=== PATIENT | male | born 2000 | race Caucasian/White ===

== ENCOUNTER 2020-05-04 07:51 | Emergency (ER) | payer OTHER, SELFPAY ==
--- NOTE | ~2020-05-04 | XR_ITS ---
EXAMINATION: XR CHEST CLINICAL INFORMATION: Cough. COMPARISON: None TECHNIQUE: Frontal view of the chest was obtained. FINDINGS: The lungs are clear. The heart and mediastinal structures are unremarkable. Mild thoracic dextro scoliosis is noted. XR/XR chest 1V IMPRESSION: No acute cardiopulmonary process.
[2020-05-04 09:15] VITALS: BP 132/84; PULSE 83; RESP 16; TEMP 36.6; O2SAT 98; BMI 22.8
--- NOTE | 2020-05-04 09:29 | ED_ITS ---
HPI - General Adult General Chief complaint: General Medical Stated complaint: COVID SYMPTONS Time Seen by Provider: 05/04/20 09:27 Source: patient Mode of arrival: ambulatory Limitations: no limitations History of Present Illness HPI narrative: cough with pain when he coughs, headache, runny nose body aches complaint: URI Onset (ago): day(s) (4) Location: head and chest Radiation: non-radiation Severity: mild Quality: aching Pain Consistency: constant Relieving factors: none Exacerbating factors: other (chest pain when he coughs) Associated symptoms: cough, fever/chills, headaches and malaise Treatments prior to arrival: none Related Data Previous Rx's Medication Instructions Recorded prednisone 40 mg PO DAILY 5 Days #10 tab 05/04/20 Allergies Allergy/AdvReac Type Severity Reaction Status Date / Time No Known Allergies Allergy Unverified 12/13/19 18:56 Review of Systems Review of Systems: Constitutional : no Fever, positive Chills, positive fati bradley, positive Malaise ENT/Mouth : positive sore throat, positive runny nose Eyes: No Discharge Cardiovascular : No Chest Pain, No SOB Respiratory : pos Cough, No Sputum Gastrointestinal : No Nausea, No Vomiting, No Diarrhea Genitourinary : No Dysuria, No Urinary Frequency Musculoskeletal : positive Myalgia Skin : No rash Neuro : pos Headache PMFSH Past Medical History Attestation statement: The following information was validated with the patient. Medical History Asthma Social History Social History (Updated 05/04/20 @ 09:34 by Sumaya Reeves DO) Smoking Status: Never smoker Use of substances other than those prescribed or required for medical reasons: No Advance Directives: No Advance Directives Information Provided: No Physical Exam Vital Signs: Vital Signs: Last Vital Signs Temp 97.8 F 05/04/20 09:15 Pulse 83 05/04/20 09:15 Resp 16 05/04/20 09:15 BP 132/84 05/04/20 09:15 Pulse Ox 98 05/04/20 09:15 Body Mass Index 22.8 Appearance: Alert. Oriented X3. No acute distress. Eyes: Pupils equal, round and reactive to light. ENT: Pharynx normal. Neck: Normal inspection. Neck supple. CVS: Normal heart rate and rhythm. Pulses normal. Respiratory: No respiratory distress. Breath sounds normal. Abdomen: Soft and nontender. Skin: Skin warm and dry. Normal skin color. Normal skin turgor. Extremities: No lower extremity edema. No calf ttp Neuro: Oriented X 3. No motor deficit. No sensory deficit. Course Course Course Narrative: patient has no hypoxia, clear lungs, CXR negative COVID negative Medical Decision Making MDM Narrative Medical decision making narrative: 19 yo male with asthma clear lungs but reports viral like illness with body aches and chest pain only with cough doubt PE no hypoxia - will need CXR and COVID swab dispo per results and findings. Lab Data Labs: Lab Results 05/04/20 Range/Units 10:04 Coronavirus (PCR) NEGATIVE (Negative) Influenza Type A (PCR) NEGATIVE (Negative) Influenza Type B (PCR) NEGATIVE (Negative) RSV RNA Qual (PCR) NEGATIVE (Negative) Discharge Plan Discharge Clinical Impression: Acute viral syndrome Patient Disposition: Home, Self-Care Instructions: Viral Syndrome (ED) Additional Instructions: return to ED for any worsening symptoms or concerns YOUR CHEST XRAY AND COVID SWAB WERE NEGATIVE if no improvement in 2 days please have recheck Prescriptions: New prednisone 20 mg tablet 40 mg PO DAILY 5 Days Qty: 10 RF: 0
[2020-05-04 10:56] LABS: Influenza A PCR NEGATIVE (Negative); Influenza B PCR NEGATIVE (Negative); Resp Syncy Virus RNA Qual PCR NEGATIVE (Negative); SARS COV2 PCR INHOUSE NEGATIVE (Negative)
== END 2020-05-04 12:24 | disposition home or self-care (01) ==
PROVIDERS: Emergency Provider Emergency Medicine; PCP Pediatrics
DX: B34.9 Viral infection, unspecified (principal); Z20.822 Contact with and (suspected) exposure to COVID-19; J45.909 Unspecified asthma, uncomplicated
CPT/HCPCS: 0241U; 36415; 71045; 99283

== ENCOUNTER 2021-11-23 11:58 | Emergency (ER) | payer OTHER, SELFPAY ==
[2021-11-23 12:09] VITALS: BP 105/72; PULSE 82; RESP 18; TEMP 37; O2SAT 97; BMI 20.7
[2021-11-23 12:27] LABS: Strep A Nucleic Acid Positive (Negative)
[2021-11-23 12:32] LABS: COVID-19 Test Negative (Negative); IDNOW Serial# 9DB6401D
--- NOTE | 2021-11-23 14:18 | ED_ITS ---
HPI - General Adult General Chief complaint: Upper Respiratory Symptoms Stated complaint: Sore throat Time Seen by Provider: 11/23/21 14:18 Source: patient Mode of arrival: ambulatory Limitations: no limitations History of Present Illness HPI narrative: Patient is a 21 year old male presenting to the emergency department today with a sore throat. Patient states that over the last 3 days he has had worsening sore throat. Patient denies any dizziness, lightheadedness, abdominal pain, nausea, vomiting, fever, chills, blurry vision, double vision, loss of vision, chest pain, difficulty breathing, shortness of breath, back pain, night sweats, pain with urination, increased urinary frequency, increased urinary urgency, blood in his urine or stool, syncope or a near syncopal episode, recent trauma or falls, bowel incontinence, bladder incontinence, bowel retention, bladder retention, or any other complaints at this time. Onset (ago): day(s) (3) Radiation: non-radiation Severity: mild Severity scale (1-10): 2 Quality: aching and dull Pain Consistency: constant Relieving factors: none Exacerbating factors: none Associated symptoms: denies other symptoms Treatments prior to arrival: none Related Data Previous Rx's Medication Instructions Recorded prednisone 20 mg tablet 40 mg PO DAILY 5 days #10 tabs 05/04/20 penicillin V potassium 500 mg 500 mg PO BID 10 days #20 tabs 11/23/21 tablet Allergies Allergy/AdvReac Type Severity Reaction Status Date / Time No Known Allergies Allergy Unverified 12/13/19 18:56 Review of Systems Constitutional: Constitutional: Reports no additional constitutional complaints, Denies chills, Denies fever(s) and Denies night sweats Eyes: Eyes: Reports no additional eye complaints, Denies blurry vision, Denies change in vision, Denies diplopia, Denies eye discharge, Denies loss of vision and Denies eye pain ENT: Denies dizziness and Reports sore throat Cardiovascular: Cardiovascular: Reports no additional cardiovascular complaints, Denies chest pain, Denies lightheadedness, Denies Loss of Consciousness and Denies dyspnea Respiratory: Respiratory: Reports no additional respiratory complaints and Denies dyspnea Gastrointestinal: Gastrointestinal: Reports no additional gastrointestinal complaints, Denies abdominal pain, Denies melena, Denies hematochezia, Denies change in bowel habits and Denies change in stool character Genitourinary: Genitourinary: Reports no additional male genitourinary complaints, Denies hematuria, Denies oliguria, Denies difficulty urinating, Denies dysuria, Denies urinary frequency, Denies urinary hesitancy, Denies urinary incontinence and Denies urinary urgency Musculoskeletal: Musculoskeletal: Reports no additional musculoskeletal complaints, Denies numbness and Denies tingling Neurologic: Denies dizziness, Denies loss of vision, Denies numbness and Denies tingling Psychiatric: Psychiatric: Reports no additional psychiatric complaints Endocrine: Endocrine: Reports no additional endocrine complaints Hematologic/Lymphatic: Hematologic/Lymphatic: Reports no additional hematologic/lymphatic complaints Allergic/Immunologic: Allergic/Immunologic: Reports no additional allergic/immunologic complaints [facility] [place] Past Medical History Attestation statement: The following information was validated with the patient. Source: old records reviewed Medical History Asthma Social History Social History Advance Directives: No Advance Directives Information Provided: Yes Physical Exam ED Vital Signs: Vital Signs - 24 hr 11/23/21 12:09 Temperature 98.6 F Pulse Rate 82 Respiratory Rate 18 Blood Pressure 105/72 Pulse Oximetry 97 Oxygen Delivery Method Room Air BMI result Body Mass Index 20.7 Const General: cooperative, no acute distress, alert and awake Nutritional Appearance: well nourished Orientation/consciousness: patient oriented x3 Limitations: no limitations [facility] Head: Yes normal to inspection and Yes atraumatic Ears: hearing grossly normal bilaterally and external ears normal General nose exam: Normal external nose present, no nasal discharge noted and no epistaxis Face and sinus: Yes normal facial exam, No abrasion and No laceration Mouth: Normal oral and palatal mucosa present, no drooling and no muffled voice Eyes General: appearance normal, both eyes and all related structures Periorbital: periorbital findings normal Eyelids: Yes eyelids normal Conjunctivae: conjunctivae normal Pupils: Equal, round and reactive pupils present EOM: EOMs intact bilaterally Neck Neck: Yes normal visual inspection, Yes full ROM and Yes no lymphadenopathy Chest Chest palpation & inspection: normal inspection of the chest Resp Effort & Inspection: normal respiratory effort and able to speak in complete sentences Auscultation: clear to auscultation bilaterally Cardio Rate: regular rate Rhythm: regular rhythm GI Inspection: Yes normal to inspection Neuro General: patient oriented x3 and moves all extremities Cranial nerves: Yes Equal, round and reactive pupils present Cognition (Neuro): normal cognition Motor exam (neuro): 5/5 motor strength present throughout Sensory Exam: Normal double simultaneous stimulation for sensation Coordination: [id number] test normal Extrem General: Yes normal to inspection, Yes full ROM and Yes capillary refill normal Psych Appearance: grossly normal Mental Status: mental status grossly normal Affect: normal affect Attitude: cooperative Thought process: Normal thought process present Thought content: Normal thought content present Insight: Good insight present (Psych) Medical Decision Making MDM Narrative Medical decision making narrative: Patient is a 21 year old male presenting to the emergency department today with a sore throat. Patient's physical exam was unremarkable. Patient's rapid strep test was positive. I explained my physical exam findings as well as all test results to the patient. I answered all questions asked by the patient. I stressed the importance of the patient taking his medication as prescribed. I stressed the importance of the patient following up with his primary care provider. I stressed the importance of the patient returning to the emergency department immediately if his symptoms were to worsen or if he were to develop any dizziness, shortness of breath, difficulty breathing, chest pain, blurry vision, loss of vision, nausea, vomiting, abdominal pain, fever, chills, back pain, or any other complaints. Patient verbalized agreement and understanding with this treatment plan and discharge. Differential Diagnosis Differential Diagnosis: sore throat, strep pharyngitis Medical Records Medical records reviewed: Yes I reviewed the patient's medical records. Lab Data Lab results reviewed: Yes I reviewed the patient's lab results. Labs: Lab Results 11/23/21 11/23/21 Range/Units 12:13 12:13 COVID-19 (JACEY) Negative (Negative) COVID-19 Clin Com See Note S. pyogenes GrpA ALMA Positive A (Negative) Discharge Plan Discharge Clinical Impression: Strep pharyngitis Patient Disposition: Home, Self-Care Instructions: Pharyngitis (ED), Strep Throat (ED) Additional Instructions: Follow up with your primary care provider. Return to the emergency department immediately if your symptoms worsen or if you develop any dizziness, shortness of breath, difficulty breathing, chest pain, blurry vision, loss of vision, nausea, vomiting, abdominal pain, fever, chills, back pain, or any other complaints. Prescriptions: New penicillin V potassium 500 mg tablet 500 mg PO BID 10 Days Qty: 20 0RF No Action prednisone 20 mg tablet 40 mg PO DAILY 5 Days Qty: 10 0RF Referrals: [facility] [place] Family Medicine [Provider Group] (Call to establish and follow up with a primary care provider. If you already have a primary care provider, please follow up with them. ) [facility] [place] Primary Care, John [Provider Group] (Call to establish and follow up with a primary care provider. If you already have a primary care provider, please follow up with them. ) [facility] [place] Primary Care,Hollie [Provider Group] (Call to establish and follow up with a primary care provider. If you already have a primary care provider, please follow up with them. ) Stand Alone Forms: Work/School Release Print Language: Guyanese
--- NOTE | 2021-11-23 14:40 | PC.NURSE ---
DISCHARGED BY PROVIDER
== END 2021-11-23 16:21 | disposition home or self-care (01) ==
PROVIDERS: Emergency Provider Emergency Medicine
DX: J02.0 Streptococcal pharyngitis (principal); Z20.822 Contact with and (suspected) exposure to COVID-19
CPT/HCPCS: 87635; 87651; 99282; 99283

== ENCOUNTER 2022-11-08 01:59 | Emergency (ER) | payer SELFPAY ==
[2022-11-08 02:11] VITALS: BP 135/76; PULSE 103; RESP 16; TEMP 37.2; O2SAT 97; BMI 21.1
[2022-11-08 03:25] LABS: Influenza A PCR NEGATIVE (Negative); Influenza B PCR NEGATIVE (Negative); Resp Syncy Virus RNA Qual PCR NEGATIVE (Negative); SARS COV2 PCR INHOUSE POSITIVE (Negative)
--- NOTE | 2022-11-08 09:06 | ED_ITS ---
HPI - General Adult General Chief complaint: General Medical Stated complaint: possible dental pain Time Seen by Provider: 11/08/22 07:49 Source: patient Mode of arrival: ambulatory Limitations: no limitations History of Present Illness HPI narrative: Headache, sore throat, fever for 1 day. no cough Onset (ago): day(s) Related Data Previous Rx's Medication Instructions Recorded prednisone 20 mg tablet 40 mg PO DAILY 5 days #10 tabs 05/04/20 penicillin V potassium 500 mg 500 mg PO BID 10 days #20 tabs 11/23/21 tablet Allergies Allergy/AdvReac Type Severity Reaction Status Date / Time No Known Allergies Allergy Unverified 12/13/19 18:56 Review of Systems Review of Systems: Yes all other systems are reviewed and are negative [facility] Past Medical History Medical History Asthma Social History Social History Advance Directives: No Advance Directives Information Provided: No Physical Exam ED Vital Signs: Vital Signs - 24 hr 11/08/22 02:11 Temperature 99 F Pulse Rate 103 H Respiratory Rate 16 Blood Pressure 135/76 Pulse Oximetry 97 Oxygen Delivery Method Room Air BMI result Body Mass Index 21.1 Const General: healthy appearing Nutritional Appearance: average body habitus Orientation/consciousness: oriented to person and patient oriented x3 Limitations: no limitations HENMT Head: Yes normal to inspection Ears: external ears normal General nose exam: Normal external nose present Mouth: Normal oral and palatal mucosa present and oropharynx normal Throat: Yes posterior oropharynx normal Eyes General: appearance normal, both eyes and all related structures Neck Neck: Yes normal visual inspection Chest Chest palpation & inspection: normal inspection of the chest Resp Auscultation: clear to auscultation bilaterally Cardio Jugular venous distension: no JVD Rate: regular rate Rhythm: regular rhythm Heart sounds: S1 normal heart sound present and S2 normal heart sound present GI Inspection: Yes normal to inspection Palpation (GI): Soft to palpation, nontender and No hepatosplenomegaly present Auscultation: normal bowel sounds General: Yes no CVA tenderness Back/Spine/Pelvis Back: no CVA tenderness Skin General skin exam: no rashes or lesions noted Neuro General: oriented to person and patient oriented x3 Cranial nerves: Yes CN's II-XII intact bilaterally Motor exam (neuro): 5/5 motor strength present throughout Extrem General: Yes normal to inspection Psych Appearance: grossly normal Course Reevaluation(s) Reevaluation #1: Patient looks well will dc home Time: 09:15 Medical Decision Making Differential Diagnosis Differential Diagnoses: The differential diagnosis associated with the presentation includes (Flu, Covid, strep throat, RSV) Lab Data MDM Lab Attestation statement: I reviewed the patient's lab results. (patient is positive for COVID) Labs: Lab Results 11/08/22 Range/Units 02:39 Influenza Type A (PCR) NEGATIVE (Negative) Influenza Type B (PCR) NEGATIVE (Negative) RSV RNA Qual (PCR) NEGATIVE (Negative) SARS-CoV-2 RNA (RT-PCR) POSITIVE A (Negative) Tests considered The following testing was considered but not selected: Chest xray considered but no cough or hypoxia Prescription Management I considered prescription management with: Antiviral (remdesivir but patient is well appearing, not hypoxic) Discharge Plan Discharge Clinical Impression: COVID-19 Patient Disposition: Home, Self-Care Instructions: COVID-19 (Coronavirus Disease 2019) (ED) Prescriptions: No Action prednisone 20 mg tablet 40 mg PO DAILY 5 Days Qty: 10 0RF penicillin V potassium 500 mg tablet 500 mg PO BID 10 Days Qty: 20 0RF Referrals: Physician,Unknown J [Primary Care Provider] - 1 week
== END 2022-11-08 09:20 | disposition home or self-care (01) ==
PROVIDERS: Emergency Provider Emergency Medicine
DX: U07.1 COVID-19 (principal); J02.9 Acute pharyngitis, unspecified
CPT/HCPCS: 0241U; 99282; 99283